=== PATIENT | female | born 1990 | race Two or more races ===

== ENCOUNTER 2018-08-28 12:52 | Emergency (ER) | payer MEDICAID, OTHER ==
[~2018-08-28] VITALS: Ht 157.5 cm; Wt 60.8 kg
[2018-08-28] MEDS ORDERED: IBUPROFEN 800 MG TAB PO ONE (16:45)
[2018-08-28 17:00] VITALS: BP 158/82
== END 2018-08-28 17:02 | disposition home or self-care (01) ==
LOC: ER 12:52
DX: J02.9 Acute pharyngitis, unspecified (principal); F17.200 Nicotine dependence, unspecified, uncomplicated; E78.00 Pure hypercholesterolemia, unspecified